=== PATIENT | female | born 1960 | race Caucasian/White ===

== ENCOUNTER 2016-10-01 09:37 | Outpatient (CLI) | payer BC | END 2016-10-01 09:38 | disposition home or self-care (01) | DX: R07.9 Chest pain, unspecified (principal) ==

== ENCOUNTER 2016-10-01 09:53 | Outpatient (CLI) | payer BC | END 2016-10-01 09:54 | disposition home or self-care (01) | DX: R07.9 Chest pain, unspecified (principal) ==

== ENCOUNTER 2017-06-07 12:48 | Outpatient (CLI) | payer BC ==
--- NOTE | 2017-06-08 11:24 | DEXA Report ---
DEXA SCAN: 06/07/2017 CLINICAL INDICATION: History of snf prednisone use, history of stress fracture. TECHNIQUE: Dual energy x-ray absorptiometry (DXA) was performed on a [employer] Steps system. Regions measured are the AP spine, femoral neck, and, if needed, forearm. COMPARISON: None. In accordance with the International Society for Clinical Densitometry (ISCD) guidelines, data from previous exams may be reanalyzed using current recommendations and techniques. This is done to allow a more accurate basis for comparison with the current study. FINDINGS LUMBAR SPINE DATA: REGION BMD (g/cm/cm) T-SCORE Z-SCORE L1 0.975 -1.3 -0.7 L2 1.014 -1.6 -1.0 L3 1.031 -1.4 -0.8 L4 1.040 -1.3 -0.8 TOTAL L1-L4 1.018 -1.4 -0.8 NOTE: All evaluable vertebrae are used for classification. HIP DATA: REGION BMD (g/cm/cm) T-SCORE Z-SCORE Neck 0.901 -1.0 -0.1 TOTAL 0.918 -0.7 -0.2 NOTE: The femoral neck or total proximal femur, whichever is lowest, is used for classification. IMPRESSION WHO CLASSIFICATION BASED ON THE INTERNATIONAL REFERENCE STANDARD: OSTEOPENIA. FRACTURE RISK: INCREASED. RECOMMENDATION: Patients with diagnosis of osteoporosis or osteopenia should have regular bone mineral density assessment. For those eligible for Medicare, routine testing is allowed once every 2 years. Testing frequency can be increased for patients who have rapidly progressing disease or for those who are receiving medical therapy to restore bone mass. COMMENT: World Health Organization (WHO) definitions for osteoporosis and osteopenia: NORMAL BMD: T-score at -1.0 or higher, fracture risk is low. OSTEOPENIA BMD: T-score between -1.0 and -2.5, fracture risk is increased. OSTEOPOROSIS BMD: T-score at -2.5 or lower, fracture risk high. National Osteoporosis Foundation recommends: 1. Obtain adequate dietary calcium (at least 1200 mg per day) and vitamin D (400 -800 international units per day). 2. Participate, as appropriate, in regular weightbearing and muscle- strengthening exercise. 3. Avoid tobacco use and reduce alcohol and caffeine intake. 4. For more detailed information see the website at www.NOF.org. MTDD
== END 2017-06-07 12:49 | disposition home or self-care (01) ==
LOC: DI 12:48
PROVIDERS: ATTEND Nurse Practitioner Family
DX: Z13.820 Encounter for screening for osteoporosis (principal); M85.89 Other specified disorders of bone density and structure, multiple sites; Z87.312 Personal history of (healed) stress fracture
CPT/HCPCS: 77080

== ENCOUNTER 2017-09-23 09:39 | Outpatient (CLI) | payer BC ==
[2017-09-23 17:21] LABS: BASOPHILS % (AUTO) 0.4 %; EOSINOPHILS % (AUTO) 0.8 %; HGB - HEMOGLOBIN 12.7 g/dL (12.0-16.0); LYMPHOCYTES # (AUTO) 1.5 10^3/uL (1.5-3.5); LYMPHOCYTES % (AUTO) 29.6 %; MEAN CORPUSCULAR HEMOGLOBIN 30.1 pg (27.0-31.0); MEAN CORPUSCULAR HGB CONC 34.7 g/dL (32.0-36.0); MEAN CORPUSCULAR VOLUME 86.7 fL (81.0-99.0); MEAN PLATELET VOLUME 9.8 fL (7.9-10.8); MONOCYTES # (AUTO) 0.3 10^3/uL (0.0-1.0); MONOCYTES % (AUTO) 6.8 %; NEUTROPHILS # (AUTO) 3.1 10^3/uL (1.5-6.6); NEUTROPHILS % (AUTO) 62.4 %; PLT - PLATELET COUNT 227 10^3/uL (130-450); RED BLOOD COUNT 4.23 10^6/uL (4.20-5.40); RED CELL DISTRIBUTION WIDTH 13.9 % (12.0-15.0); WHITE BLOOD COUNT 4.9 x10^3/uL (4.8-10.8)
[2017-09-23 17:52] LABS: CHOLESTEROL 217 mg/dL; HDL CHOLESTEROL 72 mg/dL; LDL CHOLESTEROL,CALCULATED 134 mg/dL; LDL/HDL RATIO 1.9 (<4.4); VLDL CHOLESTEROL 11 mg/dL
== END 2017-09-23 09:40 | disposition home or self-care (01) ==
LOC: LAB.F 09:39
PROVIDERS: ATTEND Nurse Practitioner Family
DX: Z00.00 Encounter for general adult medical examination without abnormal findings (principal); E55.9 Vitamin D deficiency, unspecified; E78.5 Hyperlipidemia, unspecified; E27.8 Other specified disorders of adrenal gland
CPT/HCPCS: 36415; 80061; 82306; 82728; 83721; 85025; 85651

== ENCOUNTER 2017-10-29 09:57 | Emergency (ER) | payer BC ==
[2017-10-29 10:18] LABS: BILIRUBIN,URINE NEGATIVE (NEGATIVE); GLUCOSE, URINE (UA) NEGATIVE (NEGATIVE); KETONES,URINE (UA) NEGATIVE (NEGATIVE); LEUKOCYTE ESTERASE, URINE NEGATIVE (NEGATIVE); NITRITE,URINE NEGATIVE (NEGATIVE); OCCULT BLOOD,URINE NEGATIVE (NEGATIVE); PROTEIN,URINE NEGATIVE (NEGATIVE); UROBILINOGEN,URINE 0.2 (NORMAL) E.U./dL (NORMAL)
[2017-10-29 10:21] LABS: CLARITY,URINE CLEAR (CLEAR)
[2017-10-29] MEDS ORDERED: KETOROLAC 60 MG/2 ML VIAL IVP STA (10:26)
[2017-10-29] MEDS ORDERED: ONDANSETRON 4 MG/2 ML VIAL IVP STA (10:26)
[2017-10-29 10:29] LABS: BASOPHILS % (AUTO) 0.5 %; EOSINOPHILS # (AUTO) 0.1 10^3/uL (0.0-0.7); EOSINOPHILS % (AUTO) 0.9 %; LYMPHOCYTES # (AUTO) 1.5 10^3/uL (1.5-3.5); LYMPHOCYTES % (AUTO) 21.8 %; MEAN CORPUSCULAR HEMOGLOBIN 30.6 pg (27.0-31.0); MEAN CORPUSCULAR HGB CONC 35.2 g/dL (32.0-36.0); MEAN CORPUSCULAR VOLUME 86.9 fL (81.0-99.0); MONOCYTES # (AUTO) 0.5 10^3/uL (0.0-1.0); MONOCYTES % (AUTO) 6.7 %; NEUTROPHILS # (AUTO) 4.8 10^3/uL (1.5-6.6); NEUTROPHILS % (AUTO) 70.1 %; PLT - PLATELET COUNT 210 10^3/uL (130-450); RED BLOOD COUNT 4.24 10^6/uL (4.20-5.40); RED CELL DISTRIBUTION WIDTH 13.4 % (12.0-15.0); WHITE BLOOD COUNT 6.8 x10^3/uL (4.8-10.8)
--- NOTE | 2017-10-29 10:31 | ED Physician Documentation ---
PD HPI ABD PAIN - Stated complaint Stated Complaint: ABD PX - Chief complaint Chief Complaint: Abd Pain - History obtained from History obtained from: Patient - History of Present Illness Timing - onset: Last night Timing - details: Abrupt onset, Still present Pain level max: >10 Pain level now: 7 Quality: Stabbing Location: RUQ Radiation: Upper back Worsened by: Eating, Position (supine position) Associated symptoms: Nausea, Vomiting (Once this am.). No: Fever, Diarrhea, Constipation, Dysuria Similar symptoms before: No diagnosis (Similar symptoms intermittently for the past six months.) Recently seen: Clinic (this morning.) - Additional information Additional information: The patient is a 56-year-old female who presents with right upper quadrant abdominal pain radiating to her back. She describes it as "like a punch." She has had the pain intermittently for the past 6 months, but it was quite severe last night, rated at more than 10 out of 10. The pain continues this morning at a lower level of 7 out of 10 in severity. She reports associated nausea, and vomited once this morning. She denies fever, diarrhea, or dysuria. In the past she has noticed that certain foods such as cheese when she eats quesadillas make the pain worse. She changed to a vegetarian diet 2 months ago. She was seen by her primary physician this morning, and was sent to the hospital for lab work and right upper quadrant ultrasound. Past surgical history is significant for and hysterectomy. Review of Systems Constitutional: denies: Fever Nose: denies: Congestion Throat: denies: Sore throat Cardiac: denies: Chest pain / pressure Respiratory: denies: Dyspnea, Cough GI: reports: Abdominal Pain, Nausea, Vomiting. 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 - Present Medications Home Medications: Ambulatory Orders Medication Instructions Recorded Confirmed HYDROcod/ACETAM 5/325 [[place] 5/325] 1 - 2 ea PO Q6H PRN #15 tablet 10/29/17 Levothyroxine Sodium 137 mcg PO DAILY 10/29/17 Promethazine [Phenergan] 25 - 50 mg PO Q6H PRN #10 tab 10/29/17 - Allergies Allergies/Adverse Reactions: Allergies Allergy/AdvReac Type Severity Reaction Status Date / Time No Known Drug Allergies Allergy Verified 10/29/17 10:10 - Social History Does the pt smoke?: No Smoking Status: Never smoker Does the pt drink ETOH?: No Does the pt have substance abuse?: No PD ED PE NORMAL - Vitals Vital signs reviewed: Yes (normal) - General General: Alert and oriented X 3, Well developed/nourished - HEENT HEENT: Atraumatic, Moist mucous membranes, Pharynx benign - Neck Neck: No adenopathy, No JVD - Cardiac Cardiac: RRR, No murmur - Respiratory Respiratory: No respiratory distress, Clear bilaterally - Abdomen Abdomen: Normal bowel sounds, Soft, Non distended, No organomegaly, Other ( Tenderness to palpation in the right upper quadrant, with a positive Bright sign.) - Back Back: No CVA TTP - Derm Derm: No rash - Extremities Extremities: No edema, No calf tenderness / cord - Neuro Neuro: Alert and oriented X 3, No motor deficit, Normal speech Results - Vitals Vitals: Vital Signs - 24 hr 10/29/17 10/29/17 10/29/17 10:01 11:37 12:27 Temperature 36.3 C L Heart Rate 66 61 62 Respiratory 18 16 14 Rate Blood Pressure 116/73 123/80 144/78 H O2 Saturation 100 100 99 Oxygen O2 Source Room air - Labs Labs: Laboratory Tests 10/29/17 10/29/17 10/29/17 10:10 10:15 10:15 WBC 6.8 RBC 4.24 Hgb 13.0 Hct 36.8 L MCV 86.9 MCH 30.6 MCHC 35.2 RDW 13.4 Plt Count 210 MPV 9.0 Neut # 4.8 Lymph # 1.5 [place] # 0.5 Eos # 0.1 Baso # 0.0 Absolute Nucleated RBC 0.00 Nucleated RBC % 0.0 Sodium 137 Potassium 3.9 Chloride 103 Carbon Dioxide 26 Anion Gap 8.0 BUN 11 Creatinine 0.6 Estimated GFR (MDRD) 104 Glucose 93 Calcium 9.0 Total Bilirubin 0.4 AST 24 ALT 26 Alkaline Phosphatase 99 Total Protein 7.1 Albumin 4.7 Globulin 2.4 Albumin/Globulin Ratio 2.0 Lipase 15 L Urine Color LT. YELLOW Urine Clarity CLEAR Urine pH 7.0 Ur Specific [place] <=1.005 Urine Protein NEGATIVE Urine Glucose (UA) NEGATIVE Urine Ketones NEGATIVE Urine Occult Blood NEGATIVE Urine Nitrite NEGATIVE Urine Bilirubin NEGATIVE Urine Urobilinogen 0.2 (NORMAL) Ur Leukocyte Esterase NEGATIVE Ur Microscopic Review NOT INDICATED Urine Culture Comments NOT INDICATED - Rads (name of study) RUQ U/S Radiology: Prelim report reviewed, EMP read contemporaneously, See rad report ( Minimal gallbladder sludge. 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 Her CBC, chemistry panel, and urinalysis are normal. Treatment in the emergency department included administration of ketorolac 30 mg IV, and ondansetron 4 mg IV. The patient's pain improved, but did not resolve entirely. A GI cocktail was administered, but the patient promptly vomited the medication. I discussed her condition with surgeon, Dr. Ribeiro, who will see her in outpatient follow-up on Wednesday, 3 days from now. The patient is being discharged with prescriptions for Phenergan, Actigall, and for Vicodin, 15 tablets. I discussed with her the results of her workup, suspected diagnosis, symptomatic treatment, importance of outpatient follow-up in surgery clinic, as well as potentially worrisome signs or symptoms that should prompt reevaluation in the emergency department. Departure - Departure Disposition: Home, Self Care Clinical Impression: Biliary colic Condition: Stable Instructions: ED Abdominal Pain Gallstone Poss Follow-Up: Jose D Mejia ARNP [Primary Care Provider] - Twan Chang MD [Provider Admit Priv/Credential] - Prescriptions: HYDROcod/ACETAM 5/325 [[place] 5/325] 1 - 2 ea PO Q6H PRN #15 tablet PRN Reason: Pain Promethazine [Phenergan] 25 - 50 mg PO Q6H PRN #10 tab PRN Reason: Nausea / Vomiting Comments: Avoid greasy or oily foods. You can use Phenergan as prescribed if needed for nausea. You can use Vicodin as prescribed if needed for pain. Follow up with Dr. Ribeiro on Wednesday. You can call this afternoon or Wednesday morning to schedule the appointment. Return to the emergency department if you develop increasing abdominal pain, fever, persistent vomiting, or otherwise worsening symptoms. Discharge Date/Time: 10/29/17 13:44
[2017-10-29 10:41] LABS: ALBUMIN 4.7 g/dL (3.2-5.5); BILIRUBIN,TOTAL 0.4 mg/dL (0.2-1.0); CREATININE 0.6 mg/dL (0.4-1.0); TOTAL PROTEIN 7.1 g/dL (6.7-8.2)
--- NOTE | 2017-10-29 11:35 | Ultrasound Report ---
RIGHT UPPER QUADRANT ULTRASOUND: 10/29/2017 CLINICAL INDICATION: Pain. TECHNIQUE: Real-time scanning was performed with help desk representative static images obtained. FINDINGS: The liver measures 15.6 cm. Hepatic echogenicity is normal. No intrahepatic biliary dilatation or focal parenchymal lesion is present. The common bile duct measures 5 mm. The gallbladder demonstrates a tiny amount of sludge within the lumen. No cholelithiasis, wall thickening, or pericholecystic fluid is present. The right kidney measures 11.3 cm, and demonstrates no hydronephrosis. No free fluid is present. IMPRESSION: MINIMAL GALLBLADDER SLUDGE. OTHERWISE, NORMAL RIGHT UPPER QUADRANT ULTRASOUND. TD: 10/29/2017 11:34
[2017-10-29] MEDS ORDERED: MAG HYDROX/AL HYDROX/SIMETH 30 ML UDC PO STA (12:22)
[2017-10-29] MEDS ORDERED: PHENobarb/HYOSCY/ATROPINE/SCOP 5 ML UDC PO STA (12:22)
[2017-10-29] MEDS ORDERED: LIDOCAINE VISCOUS 2% 15 ML UDC MM STA (12:22)
[2017-10-29 12:29] VITALS: BP 144/78
[2017-10-29] MEDS ORDERED: KETOROLAC 60 MG/2 ML VIAL IM STA (13:09)
== END 2017-10-29 13:44 | disposition home or self-care (01) ==
LOC: ED 09:57
DX: K80.50 Calculus of bile duct without cholangitis or cholecystitis without obstruction (principal); E03.9 Hypothyroidism, unspecified
CPT/HCPCS: 36415; 76705; 80053; 81003; 83690; 85025; 96374; 96375; 99284; A9270; 81001; 87086

== ENCOUNTER 2017-11-15 09:07 | Outpatient (CLI) | payer BC ==
[2017-11-15] MEDS ORDERED: SINCALIDE 5 MCG VIAL ONE ×2 (10:22→10:24)
--- NOTE | 2017-11-15 15:19 | Nuclear Medicine Report ---
EXAM: HEPATOBILIARY SCAN WITH CCK/KINEVAC ADMINISTRATION EXAM DATE: 11/15/2017 01:21 PM. CLINICAL HISTORY: RUQ ABDOMINAL PAIN. COMPARISON: Ultrasound exam dated 10/29/2017. TECHNIQUE: Following the intravenous administration of 5.2 mCi of Tc99m Mebrofenin, a hepatobiliary s can was done centered on the liver and gallbladder in multiple sequential images and projections. Following the intravenous administration of 1.4 mcg of CCK/ Kinevac over the course of approximately 60 minutes, dynamic imaging was done and the gallbladder ejection fraction was calculated. FINDINGS: Normal extraction of tracer from the blood pool indicating normal hepatocellular function. The liver size and shape is grossly within normal limits. There is activity visualized within the bile ducts, gallbladder, and small bowel within the first vandana r. With CCK administration, the gallbladder demonstrates an effective contraction. The gallbladder eject ion fraction is calculated to be 49%, well above the lower limit of normal of 38% for a 60-minute inj ection. The patient did report symptoms after CCK administration. No enterogastric bile reflux is observed. IMPRESSION: 1. Patent cystic duct. 2. Patent common bile duct. 3. Negative for acute or chronic cholecystitis. 4. No enterogastric bile reflux. 5. Gallbladder ejection fraction of 49%. [facility] Referring Provider Line: [phone] SITE ID: [id number]
== END 2017-11-15 09:08 | disposition home or self-care (01) ==
LOC: DI 09:07
PROVIDERS: ATTEND Surgery
DX: R10.11 Right upper quadrant pain (principal)
CPT/HCPCS: 78227; A9537

== ENCOUNTER 2017-11-30 10:46 | Day surgery (SDC) | payer BC ==
[2017-11-30] MEDS ORDERED: LACTATED RINGERS 1,000 ML IV ONE (11:30)
[2017-11-30] MEDS ORDERED: fentaNYL 100 MCG/2 ML VIAL IVP ONE (12:00)
[2017-11-30] MEDS ORDERED: MIDAZOLAM 2 MG/2 ML VIAL IVP ONE (12:00)
[2017-11-30] MEDS ORDERED: LIDO GARGLE 30 ML BOTTLE TOP ONE (12:22)
[2017-11-30] MEDS ORDERED: LIDO GARGLE 30 ML BOTTLE ONE (12:24)
[2017-11-30 13:26] VITALS: BP 123/56
== END 2017-11-30 10:47 | disposition home or self-care (01) ==
LOC: SDS 10:46
PROVIDERS: ATTEND Surgery
PROC: 0DB58ZX Excision of Esophagus, Via Natural or Artificial Opening Endoscopic, Diagnostic (ICD-10-PCS; principal; 2017-11-30 12:00)
DX: R10.13 Epigastric pain (principal); K44.9 Diaphragmatic hernia without obstruction or gangrene; K22.10 Ulcer of esophagus without bleeding
CPT/HCPCS: 43239; A9270; J7120; 88305

== ENCOUNTER 2017-12-23 08:54 | Outpatient (CLI) | payer BC ==
[2017-12-23 10:33] LABS: T4 (THYROXINE) 9.34 ug/dL (6.09-12.23)
[2017-12-23 10:39] LABS: THYROID STIMULATING HORMONE 2.74 uIU/mL (0.34-5.60)
[2017-12-23 10:40] LABS: FREE T4 (FREE THYROXINE) 0.91 ng/dL (0.58-1.64)
== END 2017-12-23 08:55 | disposition home or self-care (01) ==
LOC: LAB 08:54
PROVIDERS: ATTEND Nurse Practitioner Family
DX: E03.2 Hypothyroidism due to medicaments and other exogenous substances (principal)
CPT/HCPCS: 36415; 84436; 84439; 84443; 84481; 86376; 86800

== ENCOUNTER 2018-03-31 15:03 | Outpatient (CLI) | payer BC ==
[2018-03-31 16:02] LABS: BASOPHILS % (AUTO) 0.4 %; EOSINOPHILS # (AUTO) 0.1 10^3/uL (0.0-0.7); EOSINOPHILS % (AUTO) 1.3 %; LYMPHOCYTES # (AUTO) 2.2 10^3/uL (1.5-3.5); LYMPHOCYTES % (AUTO) 29.2 %; MEAN CORPUSCULAR HEMOGLOBIN 30.6 pg (27.0-31.0); MEAN CORPUSCULAR HGB CONC 35.1 g/dL (32.0-36.0); MEAN CORPUSCULAR VOLUME 87.3 fL (81.0-99.0); MEAN PLATELET VOLUME 8.8 fL (7.9-10.8); MONOCYTES # (AUTO) 0.4 10^3/uL (0.0-1.0); MONOCYTES % (AUTO) 5.2 %; NEUTROPHILS # (AUTO) 4.9 10^3/uL (1.5-6.6); NEUTROPHILS % (AUTO) 63.9 %; PLT - PLATELET COUNT 237 10^3/uL (130-450); RED BLOOD COUNT 4.25 10^6/uL (4.20-5.40); WHITE BLOOD COUNT 7.7 x10^3/uL (4.8-10.8)
[2018-03-31 16:08] LABS: ALBUMIN 4.2 g/dL (3.2-5.5); ALBUMIN/GLOBULIN RATIO 1.6 (1.0-2.2); BILIRUBIN,TOTAL 0.3 mg/dL (0.2-1.0); CALCIUM 8.8 mg/dL (8.5-10.3); CREATININE 0.6 mg/dL (0.4-1.0); TOTAL PROTEIN 6.9 g/dL (6.7-8.2)
== END 2018-03-31 15:04 | disposition home or self-care (01) ==
LOC: LAB 15:03
PROVIDERS: ATTEND Internal Medicine Gastroenterology
DX: K80.20 Calculus of gallbladder without cholecystitis without obstruction (principal); E03.9 Hypothyroidism, unspecified; I45.89 Other specified conduction disorders
CPT/HCPCS: 36415; 80053; 83690; 85025; 93005

== ENCOUNTER 2018-04-04 08:37 | Day surgery (SDC) | payer BC ==
[2018-04-04] MEDS ORDERED: ceFAZolin 2 GM/50 ML 0 GM/0 ML BAG IV ONE (08:40)
[2018-04-04] MEDS ORDERED: LACTATED RINGERS 1,000 ML IV ONE ×2 (09:05→14:17)
[2018-04-04] MEDS ORDERED: SCOPOLAMINE PATCH TOP ONE (09:39)
--- NOTE | 2018-04-04 10:02 | ANESTHESIA ---
Pre-Anesthesia VS, & Labs - Diagnosis Biliary colic - Procedure Lap adore Vital Signs: Temp Pulse Resp BP Pulse Ox 36.5 C 20 123/73 100 04/04/18 08:50 04/04/18 08:50 04/04/18 08:50 04/04/18 08:50 Height 5 ft 2 in Weight (kg) 72.7 kg Body Mass Index 26.9 - NPO >8 hours Last Fluid Intake: 4 oz water at 0400 - Is Patient ?: No - Lab Results Lab results reviewed: Yes Home Medications and Allergies Home Medications: Ambulatory Orders Medication Instructions Recorded Confirmed Levothyroxine Sodium 137 mcg PO DAILY 10/29/17 04/04/18 Butalbital/Aspirin/Caffeine 1 each PO DAILY 11/29/17 04/04/18 [Fiorinal 50-325-40 mg Capsule] Allergies/Adverse Reactions: Allergies Allergy/AdvReac Type Severity Reaction Status Date / Time No Known Drug Allergies Allergy Verified 04/01/18 13:59 Anes History & Medical History - Anesthetic History Anesthesia Complications: reports: Post-Operative Nausea/Vomiting, Other-see comment (Severe migraine and nausea/vomiting) Family history of Anesthesia Complications: Denies Family history of Malignant Hyperthermia: Denies - Medical History Cardiovascular: reports: None Pulmonary: reports: None Gastrointestinal: reports: None Urinary: reports: None Neuro: reports: None Musculoskeletal: reports: None Endocrine/Autoimmune: reports: None, HyPOthyroidism Blood Disorders: reports: None Skin: reports: None Smoking Status: Never smoker Psychosocial: reports: No issues indicated - Surgical History Gynecologic: section, Hysterectomy Orthopedic: Shoulder arthroplasty, Other (ankle) Exam General: Alert Dental: WNL Mouth Opening: Greater than 4 Fingerbreadths Neck Mobility: Normal Mallampati classification: I Thyromental Distance: greater than 6 cm Respiratory: Lungs clear Cardiovascular: Regular rate Neurological: Normal speech Mental/Cognitive Status: Alert/Oriented X3 Cognitive Status: Within normal limits Plan Anesthesia Type: General Consent for Procedure(s) Verified and Reviewed: Yes Code Status: Attempt Resuscitation ASA classification: 2-Mild systemic disease Is this case an emergency?: No
[2018-04-04] MEDS: BUPIVACAINE 0.5%-EPI 1:200000 PF 30 ML VIAL ONE ×2 (13:20→14:06)
[2018-04-04] MEDS ORDERED: PROPOFOL 200 MG/20 ML VIAL IVP ONE (14:05)
[2018-04-04] MEDS ORDERED: ROCURONIUM 50 MG/5 ML VIAL IVP ONE (14:05)
[2018-04-04] MEDS ORDERED: KETOROLAC 30 MG/ML VIAL IVP ONE (14:05)
[2018-04-04] MEDS ORDERED: DEXAMETHASONE 4 MG/ML VIAL IVP ONE (14:05)
[2018-04-04] MEDS ORDERED: ONDANSETRON 4 MG/2 ML VIAL IVP ONE (14:05)
[2018-04-04] MEDS ORDERED: fentaNYL 250 MCG/5 ML VIAL IVP ONE (14:05)
[2018-04-04] MEDS ORDERED: GLYCOPYRROLATE 1 MG/5 ML VIAL IVP ONE (14:05)
[2018-04-04] MEDS ORDERED: MIDAZOLAM 2 MG/2 ML VIAL IVP ONE (14:05)
[2018-04-04] MEDS ORDERED: ceFAZolin 1 GM VIAL IV ONE (14:05)
[2018-04-04] MEDS ORDERED: ACETAMINOPHEN 1,000 MG/100 ML 100 ML IV ONE (14:05)
[2018-04-04] MEDS ORDERED: NEOSTIGMINE 1 MG/1 ML 10 ML MDV IVP ONE (14:05)
[2018-04-04] MEDS ORDERED: HYDROmorphone 0.5 MG/0.5 ML SYRINGE ONE (14:57)
[2018-04-04 16:26] VITALS: BP 158/72
--- NOTE | 2018-04-05 02:33 | OPERATIVE REPORT ---
DATE OF SERVICE: 04/04/2018 Physician: Jordan Choudhury MD PREOPERATIVE DIAGNOSIS: Symptomatic gallbladder disease. POSTOPERATIVE DIAGNOSIS: Symptomatic gallbladder disease. PROCEDURE PERFORMED: Laparoscopic cholecystectomy. ANESTHESIA: General endotracheal by Salas Tomlin CRNA. SURGEON: Jordan Choudhury MD. ESTIMATED BLOOD LOSS: Minimal. COMPLICATIONS: None. FINDINGS: Laparoscopy revealed a normal-appearing gallbladder, liver, bile ducts and visualized port ions of the small and large intestine. Following resection and opening on a side table, the gallblad francheska was seen to have what appeared to be mild changes of cholesterolosis, but no obvious stones. INDICATIONS FOR PROCEDURE: The patient is a 57-year-old woman with recurrent symptoms of right upper quadrant pain, postprandial in nature, and fatty food intolerance. The findings were felt to be cli nically consistent with biliary colic; however, evaluation with ultrasonography and HIDA scan were lela th negative. Upper GI endoscopy was also nondiagnostic and laboratory tests were normal. She was fe lt to be suffering from symptomatic gallbladder disease, likely due to chronic acalculous cholecystit is or biliary dyskinesia or stones not visualized on imaging studies and advised undergo laparoscopic cholecystectomy in attempt to alleviate her symptoms. TECHNIQUE: After informed consent, the patient was taken to the operating room where she was placed under general endotracheal anesthesia. Preoperative preparation included application of sequential c nina compression boots, administration of 2 grams cefazolin within an hour of the incision. Her abdom en was prepared with ChloraPrep solution and draped in the usual sterile fashion. A transverse incision was made along the inferior edge of the umbilicus and carried down through the layers of the abdominal wall until the peritoneum was identified and entered sharply. A 10-mm Michel cannula was inserted and pneumoperitoneum achieved with carbon dioxide. A 10-mm 30-degree Sheryl t elescope was inserted. Laparoscopy was carried out. Findings were as noted above. A 5-mm port was placed in the right upper quadrant x3. Instruments were passed. The gallbladder was grasped and ret racted in a cephalad and lateral direction, exposing the cystic triangle of [place]. This region was c arefully dissected using the hook electrode, isolating the cystic duct and artery adjacent to the gal lbladder. The common bile duct and common hepatic artery were readily visualized as well. The cysti c duct was triply clipped distally, doubly proximally, and divided between. The cystic artery was do ubly clipped proximally and distally, adjacent to the gallbladder and divided between the gallbladder , dissecting from the liver bed using electrocautery for dissection and hemostasis. It was detached with only one small opening made in the gallbladder wall allowing some bile spillage during this port ion of the procedure. The gallbladder was eventually detached from the liver bed, placed in an organ retrieval bag and then sent for pathologic evaluation after opening on the side table with findings noted above. After hemostasis was assured, the right upper quadrant was copiously irrigated with saline solution, following which instruments and cannulas were removed under direct vision. Pneumoperitoneum was allo wed to escape and the incisions were closed in layers using continuous 0 Vicryl to reapproximate the midline fascia at the umbilicus, followed by 4-0 Monocryl subcuticular skin closures and Dermabond. Anesthesia was terminated and patient was transferred to the recovery room in satisfactory condition. Sponge and needle counts were correct x2. No drains were used. TD: 04/04/2018 14:46
== END 2018-04-04 08:38 | disposition home or self-care (01) ==
LOC: SDS 08:37
PROVIDERS: ATTEND Internal Medicine Gastroenterology
PROC: 0FT44ZZ Resection of Gallbladder, Percutaneous Endoscopic Approach (ICD-10-PCS; principal; 2018-04-04 09:45)
DX: K81.1 Chronic cholecystitis (principal); E03.9 Hypothyroidism, unspecified
CPT/HCPCS: 47562; J0131; J1170; J3010; J3490; J7120; 88304

== ENCOUNTER 2018-08-04 08:15 | Outpatient (CLI) | payer BC ==
[2018-08-04 08:34] LABS: BASOPHILS % (AUTO) 0.6 %; EOSINOPHILS # (AUTO) 0.1 10^3/uL (0.0-0.7); EOSINOPHILS % (AUTO) 1.7 %; HGB - HEMOGLOBIN 13.3 g/dL (12.0-16.0); LYMPHOCYTES % (AUTO) 33.9 %; MEAN CORPUSCULAR HEMOGLOBIN 30.1 pg (27.0-31.0); MEAN CORPUSCULAR VOLUME 86.2 fL (81.0-99.0); MEAN PLATELET VOLUME 8.5 fL (7.9-10.8); MONOCYTES # (AUTO) 0.4 10^3/uL (0.0-1.0); MONOCYTES % (AUTO) 7.3 %; NEUTROPHILS # (AUTO) 3.4 10^3/uL (1.5-6.6); NEUTROPHILS % (AUTO) 56.5 %; PLT - PLATELET COUNT 242 10^3/uL (130-450); RED BLOOD COUNT 4.43 10^6/uL (4.20-5.40); RED CELL DISTRIBUTION WIDTH 13.1 % (12.0-15.0)
[2018-08-04 08:51] LABS: ALBUMIN 4.1 g/dL (3.2-5.5); ALBUMIN/GLOBULIN RATIO 1.3 (1.0-2.2); ALKALINE PHOSPHATASE 101 IU/L (42-121); ALT ALANINE AMINOTRANSFERASE 21 IU/L (10-60); AST ASPARTATE AMINOTRANSFERASE 24 IU/L (10-42); BILIRUBIN,TOTAL 0.5 mg/dL (0.2-1.0); BUN - BLOOD UREA NITROGEN 16 mg/dL (6-20); CARBON DIOXIDE - CO2 27 mmol/L (21-32); CHLORIDE 103 mmol/L (101-111); CHOL/HDL RATIO 3.1 (<4.4); CHOLESTEROL 236 mg/dL; CREATININE 0.6 mg/dL (0.4-1.0); GFR - MDRD 103 (>89); GLUCOSE 106 mg/dL (70-100); HDL CHOLESTEROL 76 mg/dL; LDL CHOLESTEROL,CALCULATED 149 mg/dL; SODIUM 137 mmol/L (135-145); TOTAL PROTEIN 7.2 g/dL (6.7-8.2); VLDL CHOLESTEROL 11 mg/dL
[2018-08-04 09:02] LABS: T4 (THYROXINE) 6.88 ug/dL (6.09-12.23)
[2018-08-04 09:04] LABS: THYROID STIMULATING HORMONE 4.9 uIU/mL (0.34-5.60)
[2018-08-04 09:11] LABS: FERRITIN 54.6 ng/mL (11.0-306.8); TOTAL T3 0.94 ng/mL (0.87-1.78)
== END 2018-08-04 08:16 | disposition home or self-care (01) ==
LOC: LAB 08:15
PROVIDERS: ATTEND Nurse Practitioner Family
DX: Z00.00 Encounter for general adult medical examination without abnormal findings (principal); E03.2 Hypothyroidism due to medicaments and other exogenous substances; Z13.6 Encounter for screening for cardiovascular disorders; E55.9 Vitamin D deficiency, unspecified; E78.5 Hyperlipidemia, unspecified
CPT/HCPCS: 36415; 80053; 80061; 82306; 82728; 83721; 84436; 84439; 84443; 84480; 85025; 86376; 86800; 93005

== ENCOUNTER 2019-08-09 16:15 | Outpatient (CLI) | payer BC ==
[2019-08-09 17:00] LABS: T4 (THYROXINE) 10.98 ug/dL (6.09-12.23)
[2019-08-09 17:04] LABS: THYROID STIMULATING HORMONE 1.35 uIU/mL (0.34-5.60)
[2019-08-09 17:06] LABS: FREE T4 (FREE THYROXINE) 1.24 ng/dL (0.58-1.64)
== END 2019-08-09 16:16 | disposition home or self-care (01) ==
LOC: LAB 16:15
PROVIDERS: ATTEND Nurse Practitioner Family
DX: E03.2 Hypothyroidism due to medicaments and other exogenous substances (principal)
CPT/HCPCS: 36415; 84436; 84439; 84443; 84481; 86376; 86800

== ENCOUNTER 2019-11-24 10:40 | Outpatient (CLI) | payer BC ==
[2019-11-24 10:57] LABS: BASOPHILS % (AUTO) 0.7 %; EOSINOPHILS # (AUTO) 0.1 10^3/uL (0.0-0.7); LYMPHOCYTES # (AUTO) 1.6 10^3/uL (1.5-3.5); LYMPHOCYTES % (AUTO) 26.3 %; MEAN CORPUSCULAR HGB CONC 33.2 g/dL (32.0-36.0); MEAN CORPUSCULAR VOLUME 90.3 fL (81.0-99.0); MEAN PLATELET VOLUME 10.8 fL (7.9-10.8); MONOCYTES # (AUTO) 0.5 10^3/uL (0.0-1.0); MONOCYTES % (AUTO) 7.5 %; NEUTROPHILS # (AUTO) 3.9 10^3/uL (1.5-6.6); NEUTROPHILS % (AUTO) 64.2 %; PLT - PLATELET COUNT 240 10^3/uL (130-450); RED BLOOD COUNT 4.33 10^6/uL (4.20-5.40); RED CELL DISTRIBUTION WIDTH 13.5 % (12.0-15.0); WHITE BLOOD COUNT 6.1 x10^3/uL (4.8-10.8)
[2019-11-24 11:12] LABS: ALBUMIN 4.2 g/dL (3.2-5.5); ALBUMIN/GLOBULIN RATIO 1.6 (1.0-2.2); BILIRUBIN,TOTAL 0.6 mg/dL (0.2-1.0); CALCIUM 8.7 mg/dL (8.5-10.3); CREATININE 0.6 mg/dL (0.4-1.0); TOTAL PROTEIN 6.9 g/dL (6.7-8.2)
[2019-11-24 11:15] LABS: D-DIMER 220.6 ng/mL (200.0-255.0)
[2019-11-24 11:22] LABS: INR 1.1 (0.8-1.2); PT - PROTHROMBIN TIME 12.1 secs (9.9-12.6)
== END 2019-11-24 10:41 | disposition home or self-care (01) ==
LOC: LAB 10:40
PROVIDERS: ATTEND Nurse Practitioner Family
DX: M25.562 Pain in left knee (principal)
CPT/HCPCS: 36415; 80053; 85025; 85379; 85610

== ENCOUNTER 2019-11-24 10:51 | Outpatient (CLI) | payer BC | END 2019-11-24 10:52 | disposition home or self-care (01) | LOC: DI 10:51 | PROVIDERS: ATTEND Nurse Practitioner Family | DX: Z53.9 Procedure and treatment not carried out, unspecified reason (principal) ==

== ENCOUNTER 2019-12-04 17:47 | Outpatient (CLI) | payer BC | END 2019-12-04 17:48 | disposition home or self-care (01) | LOC: DI 17:47 | PROVIDERS: ATTEND Nurse Practitioner Family | DX: Z53.9 Procedure and treatment not carried out, unspecified reason (principal) ==

== ENCOUNTER 2020-02-07 06:55 | Outpatient (CLI) | payer BC ==
--- NOTE | 2020-02-07 10:03 | Ultrasound Report ---
PROCEDURE: Duplex Ext Veins Left INDICATIONS: LT LEG PAIN AND SWELLING TECHNIQUE: Real-time imaging, as well as color and pulse Doppler interrogation, were performed of the lower extr emity deep veins from the inguinal ligament to the popliteal fossa. COMPARISON: None. FINDINGS: The deep veins are normally compressible, and free of intraluminal thrombus. Color and pu lse Doppler demonstrate normal phasic intraluminal flow. There is normal augmentation response to di stal compression maneuver. IMPRESSION: No DVT in the left lower extremity. Reviewed by: Nan Avalos MD on 02/07/2020 10:01 AM PDT Approved by: Nan Avalos MD on 02/07/2020 10:01 AM PDT Station ID: [id number]
== END 2020-02-07 06:56 | disposition home or self-care (01) ==
LOC: DI 06:55
PROVIDERS: ATTEND Nurse Practitioner Family
DX: M25.562 Pain in left knee (principal); M79.652 Pain in left thigh; M79.89 Other specified soft tissue disorders

== ENCOUNTER 2020-08-03 11:54 | Emergency (ER) | payer BC ==
[2020-08-03] MEDS ORDERED: ACETAMINOPHEN 1,000 MG/100 ML 100 ML IV ONE (12:23)
[2020-08-03] MEDS ORDERED: SODIUM CHLORIDE 0.9% 1,000 ML IV STA (12:23)
[2020-08-03] MEDS ORDERED: ONDANSETRON 4 MG/2 ML VIAL IVP STA (12:23)
--- NOTE | 2020-08-03 12:25 | ED Physician Documentation ---
PD HPI ABD PAIN - Stated complaint Stated Complaint: NAUSEA, IRRITATED BOWELS - Chief complaint Chief Complaint: Abd Pain - History obtained from History obtained from: Patient - Additional information Additional information: This is a 59-year-old woman with a history of 3 C-sections and hysterectomy, no other abdominal surgeries. She feels like she has had a couple days worth of lower abdominal inflammation, starting last night she developed severe lower abdominal pain, vomiting, and diarrhea which was preceded by constipation. No blood from either end. She had chills last night without measured fever. On initial evaluation she would only like injectable Tylenol for pain. Declines anything stronger although she looks quite uncomfortable. Review of Systems Ten Systems: 10 systems reviewed and negative Constitutional: reports: Chills Nose: denies: Rhinorrhea / runny nose Throat: denies: Sore throat Cardiac: denies: Chest pain / pressure, Palpitations Respiratory: denies: Dyspnea, Cough GI: reports: Abdominal Pain, Nausea, Vomiting, Constipation, Diarrhea. denies: Hematemesis, Bloody / black stool Neurologic: reports: Headache. 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, Hysterectomy - Present Medications Home Medications: Ambulatory Orders Medication Instructions Recorded Confirmed Butalbital/Aspirin/Caffeine 1 each PO DAILY PRN 11/29/17 08/03/20 [Fiorinal 50-325-40 mg Capsule] Amox/Clav 875/125 [Augmentin] 1 each PO Q12H #20 tablet 08/03/20 HYDROcod/ACETAM 5/325 [[place] 5/325] 1 - 2 tab PO Q6H PRN #15 tablet 08/03/20 Levothyroxine Sodium [Levoxyl] 150 mcg PO DAILY 08/03/20 08/03/20 Ondansetron Odt [Zofran] 4 mg TL Q6H PRN #10 tablet 08/03/20 - Allergies Allergies/Adverse Reactions: Allergies Allergy/AdvReac Type Severity Reaction Status Date / Time No Known Drug Allergies Allergy Verified 08/03/20 12:06 - Social History Does the pt smoke?: No Smoking Status: Never smoker Does the pt drink ETOH?: No Does the pt have substance abuse?: No - Immunizations Immunizations are current?: Yes PD ED PE NORMAL - Vitals Vital signs reviewed: Yes - General General: Alert and oriented X 3 (She appears uncomfortable) - HEENT HEENT: PERRL, EOMI - Neck Neck: Supple, no meningeal sign, No bony TTP - Cardiac Cardiac: RRR, No murmur - Respiratory Respiratory: No respiratory distress, Clear bilaterally - Abdomen Abdomen: Other (She has moderate diffuse and severe lower abdominal tenderness with rebound tenderness. No guarding.) - Back Back: No CVA TTP, No spinal TTP - Derm Derm: Normal color, Warm and dry - Extremities Extremities: No edema, No calf tenderness / cord - Neuro Neuro: Alert and oriented X 3, Normal speech Results - Vitals Vitals: Vital Signs - 24 hr 08/03/20 08/03/20 08/03/20 12:06 12:27 14:22 Temperature 37 C 37 C Heart Rate 95 90 72 Respiratory 20 18 16 Rate Blood Pressure 114/88 H O2 Saturation 99 100 98 Oxygen O2 Source Room air - Labs Labs: Laboratory Tests 08/03/20 08/03/20 08/03/20 12:27 12:27 13:30 WBC 14.5 H RBC 4.25 Hgb 12.5 Hct 37.5 MCV 88.2 MCH 29.4 MCHC 33.3 RDW 13.5 Plt Count 225 MPV 10.1 Neut # (Auto) 12.5 H Lymph # (Auto) 0.9 L [place] # (Auto) 1.0 Eos # (Auto) 0.0 Baso # (Auto) 0.0 Absolute Nucleated RBC 0.00 Nucleated RBC % 0.0 Sodium 137 Potassium 4.5 Chloride 100 L Carbon Dioxide 24 Anion Gap 13.0 BUN 11 Creatinine 0.6 Estimated GFR (MDRD) 103 Glucose 122 H Calcium 9.1 Total Bilirubin 0.4 AST 20 ALT 23 Alkaline Phosphatase 90 Total Protein 7.4 Albumin 4.3 Globulin 3.1 Albumin/Globulin Ratio 1.4 Lipase 21 L Urine Color YELLOW Urine Clarity HAZY Urine pH 7.0 Ur Specific [place] <=1.005 Urine Protein NEGATIVE Urine Glucose (UA) NEGATIVE Urine Ketones NEGATIVE Urine Occult Blood NEGATIVE Urine Nitrite NEGATIVE Urine Bilirubin NEGATIVE Urine Urobilinogen 0.2 (NORMAL) Ur Leukocyte Esterase TRACE H Urine RBC None Seen Urine WBC 0-3 Ur Squamous Epith Cells NONE SEEN Urine Bacteria Rare Ur Microscopic Review INDICATED Urine Culture Comments INDICATED PD MEDICAL DECISION MAKING - ED course ED course: 59yo F with acute severe lower abdominal pain. Feeling better after ofirmev and ketorolac here. Has a white count of 18,[address] of the abdomen pelvis with IV contrast interpreted contemporaneously by me showing sigmoid and descending diverticulitis. Stable 2 mm focus in the pancreatic tail over 2 years. Consideration was given to an antibiotic free treatment plan but given the leukocytosis and significant tenderness as well as up-to-date recommendations still recommending antibiotics she was given Augmentin here. Departure - Departure Disposition: 01 Home, Self Care Clinical Impression: Diverticulitis of gastrointestinal tract Condition: Good Record reviewed to determine appropriate education?: Yes Instructions: ED Diverticulitis Prescriptions: Amox/Clav 875/125 [Augmentin] 1 each PO Q12H #20 tablet HYDROcod/ACETAM 5/325 [[place] 5/325] 1 - 2 tab PO Q6H PRN #15 tablet PRN Reason: Pain Ondansetron Odt [Zofran] 4 mg TL Q6H PRN #10 tablet PRN Reason: Nausea / Vomiting Comments: As discussed, talk with your doctor about a referral for colonoscopy in about 2 months. Return if worsening.
[2020-08-03 12:32] LABS: BASOPHILS % (AUTO) 0.3 %; EOSINOPHILS % (AUTO) 0.1 %; HGB - HEMOGLOBIN 12.5 g/dL (12.0-16.0); LYMPHOCYTES # (AUTO) 0.9 10^3/uL (1.5-3.5); LYMPHOCYTES % (AUTO) 5.9 %; MEAN CORPUSCULAR HEMOGLOBIN 29.4 pg (27.0-31.0); MEAN CORPUSCULAR HGB CONC 33.3 g/dL (32.0-36.0); MEAN CORPUSCULAR VOLUME 88.2 fL (81.0-99.0); MEAN PLATELET VOLUME 10.1 fL (7.9-10.8); MONOCYTES % (AUTO) 6.8 %; NEUTROPHILS # (AUTO) 12.5 10^3/uL (1.5-6.6); NEUTROPHILS % (AUTO) 86.5 %; PLT - PLATELET COUNT 225 10^3/uL (130-450); RED BLOOD COUNT 4.25 10^6/uL (4.20-5.40); RED CELL DISTRIBUTION WIDTH 13.5 % (12.0-15.0); WHITE BLOOD COUNT 14.5 x10^3/uL (4.8-10.8)
[2020-08-03 12:43] LABS: ALBUMIN 4.3 g/dL (3.2-5.5); ALBUMIN/GLOBULIN RATIO 1.4 (1.0-2.2); BILIRUBIN,TOTAL 0.4 mg/dL (0.2-1.0); CALCIUM 9.1 mg/dL (8.5-10.3); CREATININE 0.6 mg/dL (0.4-1.0); TOTAL PROTEIN 7.4 g/dL (6.7-8.2)
[2020-08-03] MEDS ORDERED: IOVERSOL 320 100 ML VIAL IVP ONE ×2 (12:47→14:36)
[2020-08-03] MEDS ORDERED: KETOROLAC 30 MG/ML VIAL IVP STA (13:28)
[2020-08-03 13:45] LABS: BILIRUBIN,URINE NEGATIVE (NEGATIVE); CLARITY,URINE HAZY (CLEAR); GLUCOSE, URINE (UA) NEGATIVE (NEGATIVE); KETONES,URINE (UA) NEGATIVE (NEGATIVE); LEUKOCYTE ESTERASE, URINE TRACE (NEGATIVE); NITRITE,URINE NEGATIVE (NEGATIVE); OCCULT BLOOD,URINE NEGATIVE (NEGATIVE); PROTEIN,URINE NEGATIVE (NEGATIVE); UROBILINOGEN,URINE 0.2 (NORMAL) E.U./dL (NORMAL)
[2020-08-03 13:56] LABS: BACTERIA,URINE Rare /HPF (None Seen); RBC,URINE None Seen /HPF (0-5); SQUAMOUS EPITHELIAL CELL,UR NONE SEEN (<= Few)
--- NOTE | 2020-08-03 14:46 | CT Report ---
PROCEDURE: Abdomen/Pelvis W INDICATIONS: IV only, low abd pain CONTRAST: IV CONTRAST: Optiray 320 ml: 100 PO CONTRAST: *NO PO CONTRAST TECHNIQUE: After the administration of oral and IV contrast, 5 mm thick sections acquired from the diaphragms to the symphysis. 5 mm thick coronal and sagittal reformats were acquired. For radiation dose reducti on, the following was used: automated exposure control, adjustment of mA and/or kV according to raul ent size. COMPARISON: Abdomen ultrasound 10/29/17, CT abdomen and pelvis 12/30/2017 FINDINGS: Image quality: Excellent. ABDOMEN: Lung bases: Lung bases are clear. Heart size is normal. Solid organs: Liver and spleen are normal in size and enhancement. Gallbladder has been removed Bi liary system is non dilated. Pancreas enhances normally, noting 2 mm focus of low attenuation in the pancreatic tail, unchanged. No adrenal nodules. Kidneys demonstrate normal size and enhancement, w ithout hydronephrosis. Peritoneum and bowel: Bowel loops are nonobstructive. There is thickened appearance of the descendin g and sigmoid colon with areas of pericolonic inflammatory change as well as diverticula. No abscess or free air. No free fluid. No free fluid or air. Nodes and vessels: No retroperitoneal or mesenteric adenopathy by size criteria. Aorta and inferior vena cava are normal in size. Miscellaneous: Small fat-containing ventral hernia is noted. Hiatal hernia is present. PELVIS: Genitourinary: Bladder wall thickness is normal. Miscellaneous: No inguinal hernias or adenopathy. Bones: No suspicious bony lesions. No vertebral body compression fractures. IMPRESSION: 1. Sigmoid and descending colonic thickening with inflammatory change most consistent with colitis se condary to diverticulitis. 2. 2 mm focus of low attenuation within the pancreatic tail, overall nonspecific. It is noted to be s table since 2018. Reviewed by: Manju Valerio MD on 08/03/2020 2:45 PM PST Approved by: Manju Valerio MD on 08/03/2020 2:45 PM PST Station ID: [id number]
[2020-08-03] MEDS ORDERED: AMOX/CLAV 875 MG/125 MG TABLET PO STA (14:56)
[2020-08-03] MEDS ORDERED: KETOROLAC 15 MG/ML VIAL IVP STA (14:56)
[2020-08-03 15:08] VITALS: BP 139/72
== END 2020-08-03 15:17 | disposition home or self-care (01) ==
LOC: ED 11:54
DX: K57.32 Diverticulitis of large intestine without perforation or abscess without bleeding (principal)
CPT/HCPCS: 36415; 74177; 80053; 81001; 83690; 85025; 87086; 96361; 96365; 96375; 96376; 99284; A9270; J0131; Q9967; 81003

== ENCOUNTER 2021-12-31 10:05 | Outpatient (CLI) | payer BC ==
[2021-12-31 10:27] LABS: BASOPHILS % (AUTO) 0.4 %; EOSINOPHILS # (AUTO) 0.2 10^3/uL (0.0-0.7); EOSINOPHILS % (AUTO) 1.6 %; HCT - HEMATOCRIT 37.5 % (37.0-47.0); HGB - HEMOGLOBIN 12.7 g/dL (12.0-16.0); LYMPHOCYTES # (AUTO) 1.7 10^3/uL (1.5-3.5); LYMPHOCYTES % (AUTO) 18.5 %; MEAN CORPUSCULAR HEMOGLOBIN 30.3 pg (27.0-31.0); MEAN CORPUSCULAR HGB CONC 33.9 g/dL (32.0-36.0); MEAN CORPUSCULAR VOLUME 89.5 fL (81.0-99.0); MEAN PLATELET VOLUME 10.1 fL (7.9-10.8); MONOCYTES # (AUTO) 0.6 10^3/uL (0.0-1.0); MONOCYTES % (AUTO) 6.1 %; NEUTROPHILS # (AUTO) 6.8 10^3/uL (1.5-6.6); NEUTROPHILS % (AUTO) 73.1 %; PLT - PLATELET COUNT 234 10^3/uL (130-450); RED BLOOD COUNT 4.19 10^6/uL (4.20-5.40); RED CELL DISTRIBUTION WIDTH 13.7 % (12.0-15.0); WHITE BLOOD COUNT 9.2 x10^3/uL (4.8-10.8)
[2021-12-31 10:47] LABS: ALBUMIN 4.2 g/dL (3.2-5.5); ALBUMIN/GLOBULIN RATIO 1.3 (1.0-2.2); ALKALINE PHOSPHATASE 90 IU/L (42-121); ALT ALANINE AMINOTRANSFERASE 24 IU/L (10-60); AST ASPARTATE AMINOTRANSFERASE 20 IU/L (10-42); BILIRUBIN,TOTAL 0.5 mg/dL (0.2-1.0); BUN - BLOOD UREA NITROGEN 21 mg/dL (6-20); CALCIUM 9.1 mg/dL (8.5-10.3); CARBON DIOXIDE - CO2 29 mmol/L (21-32); CHLORIDE 101 mmol/L (101-111); CHOL/HDL RATIO 3.3 (<4.4); CHOLESTEROL 273 mg/dL; CREATININE 0.6 mg/dL (0.4-1.0); GFR - MDRD 102 (>89); GLUCOSE 97 mg/dL (70-100); HDL CHOLESTEROL 82 mg/dL; LDL CHOLESTEROL,CALCULATED 182 mg/dL; LDL/HDL RATIO 2.2 (<4.4); SODIUM 139 mmol/L (135-145); TOTAL PROTEIN 7.5 g/dL (6.7-8.2); TRIGLYCERIDES 47 mg/dL; VLDL CHOLESTEROL 9 mg/dL
[2022-01-01 05:10] LABS: HCV AB 0.1 s/co ratio (0.0-0.9)
== END 2021-12-31 10:06 | disposition home or self-care (01) ==
LOC: LAB 10:05
PROVIDERS: ATTEND Internal Medicine
DX: K64.9 Unspecified hemorrhoids (principal); Z11.59 Encounter for screening for other viral diseases; A60.9 Anogenital herpesviral infection, unspecified; E03.9 Hypothyroidism, unspecified; G43.909 Migraine, unspecified, not intractable, without status migrainosus; B07.9 Viral wart, unspecified
CPT/HCPCS: 36415; 80053; 80061; 81599; 83721; 84443; 85025; 86480; 86803

== ENCOUNTER 2022-12-23 21:40 | Emergency (ER) | payer OTHER ==
--- NOTE | 2022-12-23 22:53 | ED Physician Documentation ---
PD HPI URI - Stated complaint Stated Complaint: FEVER/SORE THROAT/CHILLS - Chief complaint Chief Complaint: Fever - History obtained from History obtained from: Patient - Additional information Additional information: 62-year-old woman presents with sore throat and fever starting today. denies cp, soa, nausea, ear pain or cough. Review of Systems Constitutional: reports: Fever, Chills, Myalgias, Fatigue Throat: reports: Sore throat Cardiac: denies: Chest pain / pressure Respiratory: denies: Dyspnea, Cough PD PAST MEDICAL HISTORY - Past Medical History Cardiovascular: Deep vein thrombosis Respiratory: None Neuro: Headaches Endocrine/Autoimmune: HyPOthyroidism GI: None SACK SEWER MACHINE: Fibroids : None HEENT: None Psych: None Musculoskeletal: None Derm: None - Past Surgical History Past Surgical History: Yes Ortho: Shoulder arthroplasty, Other /SACK SEWER MACHINE: section, Hysterectomy - Present Medications Home Medications: Ambulatory Orders Medication Instructions Recorded Confirmed Butalbital/Aspirin/Caffeine 1 each PO DAILY PRN 11/29/17 08/03/20 [Fiorinal 50-325-40 mg Capsule] Amox/Clav 875/125 [Augmentin] 1 each PO Q12H #20 tablet 08/03/20 HYDROcod/ACETAM 5/325 [[place] 5/325] 1 - 2 tab PO Q6H PRN #15 tablet 08/03/20 Levothyroxine Sodium [Levoxyl] 150 mcg PO DAILY 08/03/20 08/03/20 Ondansetron Odt [Zofran] 4 mg TL Q6H PRN #10 tablet 08/03/20 Amox/Clav 875/125 [Augmentin] 1 each PO Q12H #20 tablet 09/18/22 Azithromycin [Zithromax] 250 mg PO DAILY #6 tablet 09/18/22 Codeine Phosphate/Guaifenesin 5 - 10 ml PO Q4HR PRN #200 ml 09/18/22 [Guaifen-Codeine 100-10 mg/5 ml] - Allergies Allergies/Adverse Reactions: Allergies Allergy/AdvReac Type Severity Reaction Status Date / Time No Known Drug Allergies Allergy Verified 09/18/22 13:56 - Social History Does the pt smoke?: No Smoking Status: Never smoker Does the pt drink ETOH?: No Does the pt have substance abuse?: No - Immunizations Immunizations are current?: Yes PD ED PE NORMAL - Vitals Vital signs reviewed: Yes - General General: Alert and oriented X 3, No acute distress, Well developed/nourished - HEENT HEENT: Atraumatic, PERRL, EOMI, Moist mucous membranes, Pharynx benign - Neck Neck: Supple, no meningeal sign - Cardiac Cardiac: RRR - Respiratory Respiratory: No respiratory distress, Clear bilaterally Results - Vitals Vitals: Vital Signs - 24 hr 12/23/22 21:45 Temperature 38.8 C H Heart Rate 95 Respiratory 16 Rate Blood Pressure 136/87 H O2 Saturation 97 Oxygen O2 Source Room air PD Medical Decision Making - ED course ED course: 62-year-old woman presents with viral URI symptoms. Symptomatic care discussed. Respiratory viral panel sent. Plan to follow-up with primary care provider. Return precautions given. Departure - Departure Disposition: 01 Home, Self Care Clinical Impression: URI (upper respiratory infection) Condition: Good Instructions: ED URI Viral Comments: You are seen in the emergency department for sore throat, fever Likely due to a virus. We do not give any specific medications for viral Upper respiratory infection (common cold) but you should stay really well-hydrated, use a cool- mist humidifier at night, and get lots of rest. Return to the emergency department for new or worsening symptoms or other concerns.Follow-up with your primary care provider.
[2022-12-23 22:55] LABS: B. PARAPERTUSSIS- RESP PCR PAN NOT DETECTED; B. PERTUSSIS- RESP PCR PANEL NOT DETECTED; C. PNEUMONIAE- RESP PCR PANEL NOT DETECTED; CORONAVIRUS 229E-RESP PCR NOT DETECTED; CORONAVIRUS HKU1-RESP PCR NOT DETECTED; CORONAVIRUS NL63-RESP PCR NOT DETECTED; CORONAVIRUS OC43-RESP PCR NOT DETECTED; HUMAN METAPNEUMOVIRUS NOT DETECTED; INFLUENZA A- RESP PCR PANEL NOT DETECTED; INFLUENZA B - RESP PCR PANEL NOT DETECTED; M. PNEUMONIAE- RESP PCR PANEL NOT DETECTED; PARAINFLUENZA VIRUS 1 NOT DETECTED; PARAINFLUENZA VIRUS 2 NOT DETECTED; PARAINFLUENZA VIRUS 3 NOT DETECTED; PARAINFLUENZA VIRUS 4 NOT DETECTED; RHINOVIRUS/ENTEROVIRUS NOT DETECTED; RSV- RESP PCR PANEL NOT DETECTED; SARS-CoV-2 -RESP PCR PANEL NOT DETECTED
[2022-12-23 23:00] VITALS: BP 130/60
== END 2022-12-23 22:58 | disposition home or self-care (01) ==
LOC: ED 21:40
DX: J06.9 Acute upper respiratory infection, unspecified (principal); Z20.822 Contact with and (suspected) exposure to COVID-19
CPT/HCPCS: 87633; 99283

== ENCOUNTER 2023-08-26 09:56 | Outpatient (CLI) | payer OTHER ==
[2023-08-26 10:25] LABS: ALBUMIN 4.3 g/dL (3.2-5.5); ALBUMIN/GLOBULIN RATIO 1.5 (1.0-2.2); BILIRUBIN,TOTAL 0.4 mg/dL (0.2-1.0); CALCIUM 9.1 mg/dL (8.5-10.3); CREATININE 0.6 mg/dL (0.6-1.3); POTASSIUM 4.5 mmol/L (3.5-4.5); TOTAL PROTEIN 7.2 g/dL (6.4-8.9)
== END 2023-08-26 09:57 | disposition home or self-care (01) ==
LOC: LAB 09:56
PROVIDERS: ATTEND Internal Medicine
DX: Z51.81 Encounter for therapeutic drug level monitoring (principal); Z79.899 Other long term (current) drug therapy
CPT/HCPCS: 36415; 80053

== ENCOUNTER 2023-08-26 10:02 | Outpatient (CLI) | payer OTHER ==
--- NOTE | 2023-08-26 10:51 | XRAY Report ---
PROCEDURE: Chest 2V INDICATIONS: CHRONIC COUGH TECHNIQUE: 2 views of the chest were acquired. COMPARISON: None. FINDINGS: Surgical changes and devices: None. Lungs and pleura: No pleural effusions or pneumothorax. Lungs are clear. Peribronchial cuffing. Mediastinum: Mediastinal contours appear normal. Heart size is normal. Bones and chest wall: No suspicious bony lesions. Overlying soft tissues appear unremarkable. IMPRESSION: Peribronchial cuffing, suggestive of infectious or inflammatory bronchitis. Reviewed by: Bebeto Schreiber MD on 08/26/2023 10:50 AM [facility] Approved by: Bebeto Schreiber MD on 08/26/2023 10:50 AM [facility] Station ID: [id number]
== END 2023-08-26 10:03 | disposition home or self-care (01) ==
LOC: DI 10:02
PROVIDERS: ATTEND Internal Medicine
DX: R05.3 Chronic cough (principal); Z51.81 Encounter for therapeutic drug level monitoring; Z79.899 Other long term (current) drug therapy
CPT/HCPCS: 36415; 80053

== ENCOUNTER 2023-10-28 16:02 | Outpatient (CLI) | payer OTHER ==
[2023-10-28 17:08] LABS: THYROID STIMULATING HORMONE 1.1 uIU/mL (0.34-5.60)
== END 2023-10-28 16:03 | disposition home or self-care (01) ==
LOC: LAB 16:02
PROVIDERS: ATTEND Internal Medicine Endocrinology, Diabetes & Metabolism
DX: E03.9 Hypothyroidism, unspecified (principal)
CPT/HCPCS: 36415; 84439; 84443

== ENCOUNTER 2024-01-25 12:03 | Outpatient (CLI) | payer OTHER ==
--- NOTE | 2024-01-25 18:20 | XRAY Report ---
PROCEDURE: Knee 3V LT INDICATIONS: L KNEE PAIN TECHNIQUE: 3 views of the knee(s) were acquired. COMPARISON: None. FINDINGS: Bones: No fractures or dislocations. Mild tricompartmental osteoarthritis is seen. No significant pa tellar subluxation. No suspicious bony lesions. Soft tissues: No knee joint effusion. No suspicious soft tissue calcifications or masses. IMPRESSION: No acute bony abnormality. Mild tricompartmental osteoarthritis. No significant joint effusion. Reviewed by: Ronal Weems MD on 01/25/2024 6:19 PM PDT Approved by: Ronal Weems MD on 01/25/2024 6:19 PM PDT Station ID: [id number]
== END 2024-01-25 12:04 | disposition home or self-care (01) ==
LOC: DI 12:03
PROVIDERS: ATTEND Internal Medicine
DX: M17.12 Unilateral primary osteoarthritis, left knee (principal)